=== PATIENT | female | born 1995 | race Caucasian/White ===

== ENCOUNTER 2018-07-14 10:28 | Emergency (ER) | payer MEDICAID, OTHER ==
[~2018-07-14] VITALS: Ht 165.1 cm; Wt 111.1 kg
[2018-07-14 12:27] VITALS: BP 123/71
[2018-07-14] MEDS ORDERED: METHOCARBAMOL 500 MG TAB PO ONE (13:45)
[2018-07-14] MEDS ORDERED: KETOROLAC TROMETH 60MG/2ML VIAL IM ONE (13:45)
== END 2018-07-14 14:54 | disposition home or self-care (01) ==
LOC: ER 10:34
DX: S13.4XXA Sprain of ligaments of cervical spine, initial encounter (principal); R51 Headache; V43.52XA Car driver injured in collision with other type car in traffic accident, initial encounter; Y93.I9 Activity, other involving external motion; Y92.488 Other paved roadways as the place of occurrence of the external cause; Y99.8 Other external cause status
CPT/HCPCS: 72125; J1885

== ENCOUNTER 2019-03-18 14:53 | Emergency (ER) | payer MEDICAID ==
[~2019-03-18] VITALS: Ht 165.1 cm; Wt 111.6 kg
[2019-03-18 15:00] VITALS: BP 130/70
== END 2019-03-18 19:54 | disposition left against medical advice (07) ==
LOC: ER 14:53
DX: M79.604 Pain in right leg (principal); Z53.21 Procedure and treatment not carried out due to patient leaving prior to being seen by health care provider
CPT/HCPCS: 93971